=== PATIENT | male | born 1970 | race Caucasian/White ===

== ENCOUNTER → 2024-03-05 17:30 | Outpatient (REF) | payer OTHER, SELFPAY | LOC: MRI 17:30 | PROVIDERS: ATTENDING PHYSICIAN Internal Medicine; FAMILY PHYSICIAN Family Medicine | DX: M51.360 Other intervertebral disc degeneration, lumbar region with discogenic back pain only (principal) | CPT/HCPCS: 72148 ==

== ENCOUNTER → 2024-12-11 13:08 | Outpatient (REF) | payer OTHER, SELFPAY | LOC: PAVMRI 13:08 | PROVIDERS: ATTENDING PHYSICIAN Internal Medicine; FAMILY PHYSICIAN Physician Assistant | DX: M76.61 Achilles tendinitis, right leg (principal) | CPT/HCPCS: 73721 ==